=== PATIENT | male | born 1940 | race Caucasian/White ===

== ENCOUNTER 2016-11-14 05:57 | Inpatient (IN) | payer BC ==
[~2016-11-14] VITALS: Ht 177.8 cm; Wt 104.4 kg
[~2016-11-14 05:57] MED LIST: ADVIL200 MG PO; ASPIR 8181 M1 PO; ERGOCALCIF50000 UNIT PO; HYDROCHLOROTHIA25 MG PO; IRON325 M1 PO; LIPITOR20 MG PO; LO-DOSE ASPIRIN81 M2 PO; OXYCODONE HCL5 MG PO; VERAPAMIL HCL240 MG PO; XARELTO10 MG PO; ZOLOFT50 MG PO; ZYRTEC10 M2 PO
[2016-11-14 06:28] VITALS: BP 128/65
[2016-11-14] MEDS ORDERED: IRON160 M1 PO (06:28)
[2016-11-14 13:24] VITALS: BP 144/65
[2016-11-14 15:58] VITALS: BP 133/63
[2016-11-14 20:27] VITALS: BP 141/64
[2016-11-15 00:16] VITALS: BP 142/63
[2016-11-15 04:27] VITALS: BP 129/60
[2016-11-15 05:28] LABS: MCV 92.3 FL (86-99)
[2016-11-15 05:50] LABS: ANION GAP 8 MEQ/L (2-14); CHLORIDE 103 MEQ/L (99-109); GFR ESTIMATE (CALCULATED) > 59 mL/min/; GLUCOSE 118 mg/dL (70-99); POTASSIUM 3.9 MEQ/L (3.7-5.4); SAMPLE HEMOLYSIS CHECK 0; SAMPLE ICTERIC CHECK 0; SAMPLE LIPEMIA CHECK 0; SODIUM 137 MEQ/L (136-147); UREA NITROGEN (BUN) 26 mg/dL (9-23)
[2016-11-15 08:00] VITALS: BP 123/61
[2016-11-15 12:18] VITALS: BP 141/63
[2016-11-15 16:03] VITALS: BP 138/64
[2016-11-15 19:50] VITALS: BP 126/58
[2016-11-16 00:20] VITALS: BP 141/65
[2016-11-16 04:24] VITALS: BP 134/62
[2016-11-16 05:44] LABS: HEMATOCRIT 40.2 % (38.0-50.0); MCV 92.6 FL (86-99)
[2016-11-16 06:05] LABS: ANION GAP 10 MEQ/L (2-14); CHLORIDE 102 MEQ/L (99-109); POTASSIUM 3.6 MEQ/L (3.7-5.4); SAMPLE HEMOLYSIS CHECK 0; SAMPLE ICTERIC CHECK 0; SAMPLE LIPEMIA CHECK 0; SODIUM 139 MEQ/L (136-147)
[2016-11-16 06:11] LABS: GFR ESTIMATE (CALCULATED) > 59 mL/min/; GLUCOSE 98 mg/dL (70-99); UREA NITROGEN (BUN) 24 mg/dL (9-23)
[2016-11-16 08:26] VITALS: BP 152/69
[2016-11-16 09:43] LABS: ADD MIUA? YES; BILIRUBIN NEGATIVE; BLOOD LARGE; COLOR YELLOW ((YELLOW)); GLUCOSE (STRIP) NEGATIVE; KETONES NEGATIVE; LEUKOCYTES NEGATIVE; NITRITE NEGATIVE; PROTEIN (STRIP) 30; UROBILINOGEN 0.2 MG/DL (0.2-1.0)
[2016-11-16 10:07] LABS: BACTERIA NONE SEEN /HPF; EPITHELIAL CELLS RARE /HPF; MUCUS TRACE /LPF; RED BLOOD CELLS TNTC /HPF (0-5)
[2016-11-16 11:41] VITALS: BP 141/65
[2016-11-16] MEDS ORDERED: TYLENOL REGULA325 MG PO (13:07)
[2016-11-16] MEDS ORDERED: OXYCODONE HCL5 MG PO (13:08)
[2016-11-16] MEDS ORDERED: LIDOCAINE700 MG TD (13:08)
[2016-11-16] MEDS ORDERED: DOCUSATE SODIU100 MG PO (13:08)
[2016-11-16] MEDS ORDERED: XARELTO10 MG PO (13:09)
[2016-11-16 14:51] VITALS: BP 131/60
== END 2016-11-16 17:01 | DRG 470 ==
LOC: 2SOUTH 05:57 → 3WEST 13:13 → 2SOUTH 13:32 → 3WEST 11-16 17:01
PROVIDERS: Orthopaedic Surgery; Physician Assistant
PROC: 0SRC0J9 Replacement of Right Knee Joint with Synthetic Substitute, Cemented, Open Approach (ICD-10-PCS; principal; 2016-11-14)
DX: M17.11 Unilateral primary osteoarthritis, right knee (principal); R31.0 Gross hematuria; E78.5 Hyperlipidemia, unspecified; R33.9 Retention of urine, unspecified; E87.6 Hypokalemia; N28.9 Disorder of kidney and ureter, unspecified; G47.30 Sleep apnea, unspecified; Z87.442 Personal history of urinary calculi
CPT/HCPCS: 80048; 81003; 85014; 85018; 87086; C1713; J0690; J1885; J2175; J2250; J3010; J7050; J7120; L1820; S0020